=== PATIENT | female | born 1985 | race Caucasian/White ===

== ENCOUNTER 2025-06-05 13:24 | Outpatient (CLI) | payer BC, SELFPAY ==
--- NOTE | ~2025-06-05 | MMUS_ITS ---
EXAMINATION: US breast BI complete, MM diagnostic jayda BI w yolette HISTORY: Left breast lump TECHNIQUE: Images of both breasts ]] were performed using full field digital mammography. 3-D tomosynthesis were also obtained and synthetic 2-D images were generated. CAD analysis was submitted and interpreted. High resolution [bilateral breast ultrasound was performed.] ] COMPARISON: None available BREAST PARENCHYMAL COMPOSITION: The breasts are extremely dense which lowers the sensitivity of mammography. FINDINGS: MAMMOGRAPHIC FINDINGS: No suspicious calcifications or architectural distortion. Mammographic masses in all 4 quadrants of both breasts ULTRASOUND: Several benign cysts scattered throughout both breasts. There is a 8 x 8 x 6 mm wider than tall hypoechoic cyst versus solid mass in the right breast the 12:00 position 4 cm from the nipple. The finding is wider than tall. No internal color Doppler flow. No posterior acoustic shadowing. The finding is probably benign. There is an 8 x 4 x 9 mm hypoechoic cyst versus solid mass in the right breast the 2:00 position, 5 cm from nipple. The finding is wider than tall. No internal color Doppler flow. No posterior acoustic shadowing. The findings probably benign. There is a 2.5 x 0.6 cm hypoechoic masslike structure in the right breast 7:00 position. The finding is wider than tall. Margins are circumscribed. No posterior acoustic shadowing. There is a 1.9 x 0.8 cm hypoechoic cyst versus solid mass in the left breast at 3:00 position in the periareolar region. The finding is wider than tall. No posterior acoustic shadowing. There is a 0.9 x 0.6 cm hypoechoic cyst versus solid mass in the left breast at 2:00 position 7 cm from the nipple. The finding is well-circumscribed. Findings water than tall. No posterior acoustic shadowing. No internal color flow. IMPRESSION/RECOMMENDATION: 1. Probably benign findings in both breasts. A bilateral diagnostic mammogram and a bilateral diagnostic breast ultrasound in 6 months is recommended. BI-RADS 3-Probably benign-Short interval follow-up suggested. Reviewed, dictated and finalized at location Q. IMPRESSION/RECOMMENDATION: 1. Probably benign findings in both breasts. A bilateral diagnostic mammogram a nd a bilateral diagnostic breast ultrasound in 6 months is recommended. BI-RADS 3-Probably benign-Short interval follow-up suggested. IMPRESSION/RECOMMENDATION: 1. Probably benign findings in both breasts. A bilateral diagnostic mammogram a nd a bilateral diagnostic breast ultrasound in 6 months is recommended. BI-RADS 3-Probably benign-Short interval follow-up suggested.
--- OUTSIDE RECORDS SUMMARY | 2025-06-05 15:17 | XMS_ITS | Clinical Summary ---
Author Organization [facility] Address [address] [place] [address] Phone Care Team Providers Care Assistant Technician Name Role Phone Maximino Dominguez MD Primary Care Provider [phone] Allergies No known active allergies Medications mv-min/folic/vit K/lycop/coQ10 (DAILY MULTIVITAMIN ORAL) Take by mouth. Active Active Problems No known active problems Resolved Problems Problem Noted Date Diagnosed Date Resolved Date 02/11/2014 08/12/2021 Amenorrhea 01/14/2014 08/12/2021 Family History Medical History Relation Name Comments Diabetes Father Healthy Father Healthy Mother Healthy Paternal Grandfather Healthy Paternal Grandmother Relation Name Status Comments Father Alive Maternal Grandfather (Age 60s) s uicide Maternal Grandmother (Age 40s) l jesús [place] Mother Alive Paternal Grandfather Alive Paternal Grandmother Alive Social History Tobacco Use Types Packs/Day Years Used Date Smoking Tobacco: Never Smokeless Tobacco: Never Alcohol Use Standard Drinks/Week Comments No 0 (1 standard drink = 0.6 oz pur e alcohol) Comments No Sex and Gender Information Value Date Recorded Sex Assigned at Not on file Legal Sex Female 9:47 AM CDT Gender Identity Not on file Sexual Orientation Not on file Occupation Industry Job Start Date Job End Date Homemaker Not on file Not on file Not on file Last Filed Vital Signs Vital Sign Reading Time Taken Comments Blood Pressure 136/77 08/12/2021 7:34 AM FACILITY MAINTENANCE MANAGER Pulse 72 08/25/2014 1:08 PM FACILITY MAINTENANCE MANAGER Temperature 37.1 C (98.7 F) 08/25/2014 1:08 PM FACILITY MAINTENANCE MANAGER Respiratory Rate 18 08/25/2014 1:08 PM FACILITY MAINTENANCE MANAGER Oxygen Saturation 98% 08/25/2014 1:08 PM FACILITY MAINTENANCE MANAGER Inhaled Oxygen Concentration - - Weight 89.4 kg (197 lb) 08/12/2021 7:34 AM FACILITY MAINTENANCE MANAGER Height 175.3 cm (5' 9) 08/12/2021 7:34 AM FACILITY MAINTENANCE MANAGER Body Mass Index 29.09 08/12/2021 7:34 AM FACILITY MAINTENANCE MANAGER Plan of Treatment Health Maintenance Due Date Last Done Comments DTAP/TDAP/TD VACCINES (1 - Tdap) 2003 HEPATITIS B VACCINES (1 of 3 - 19+ 3-dose series) 07/21 HPV/Cotest (21-29) 2005 HPV VACCINES (1 - 3-dose SCDM series) 2011 HPV/Cotest (30-65) 2014 CERVICAL CANCER SCREENING 01/14/2017 PAP SMEAR 01/14/2017 01/14/2014 BREAST CANCER SCREENING 2024 INFLUENZA VACCINE (#1) 2025 Procedures Procedure Name Priority Date/Time Associated Diagnosis Comments CERV/VAG CYTOPATH, SUREPATH W/RFLX HPV Routine 01/14/2014 3:59 PM CDT Amenorrhea Screening for malignant neoplasm of cervix from Last 3 Months or Most Recently Relevant to Health Maintenance Results * CERV/VAG CYTOPATH, SUREPATH W/RFLX HPV (01/14/2014 3:59 PM CDT) CLINICAL INFORMATION HEALTHY [facility] [employer] [facility] LAST MENSTRUAL PERIOD 10/01/13 [facility] [employer] [facility] PAP INTERP Negative for intraepithelial lesion or malignancy. [facility] [employer] [facility] Comment: Performed by [facility], [address] [place] [id number] ADEQUACY: Satisfactory for evaluation. Endocervical/trans formation zone component present. [facility] [employer] [facility] SOURCE Endocervix [facility] [employer] [facility] PREV PAP: Information not provided [facility] CYTOTECHNOLOGI ST: LMT, CT(ASCP) [facility] [employer] [facility] PREV BX: TISSUE SUBMITTED WITH PAP [facility] Endocervical 01/14/2014 3:59 PM CDT 01/14/2014 11:22 PM CDT Comment:ENDOCERVICAL Narrative [facility] - 01/17/2014 12:48 PM CDT ecc Camilla Portillo CNM PATHOLOGY/CYTOLOGY ORDERA BLES Edited Result - Final [facility] CLIA# [id number] [address], [place] [id number] from Last 3 Months or Most Recently Relevant to Health Maintenance Insurance [facility] [employer] ACCESS CHOICE Advance Directives For more information, please contact: [phone] * Full Code (Latest Code Status on File) Date Activated Date Inactivated Comments 07/06/2014 6:22 PM 07/06/2014 10:03 PM * Full Code Date Activated Date Inactivated Comments 07/06/2014 4:00 PM 07/06/2014 6:22 PM Care Teams Assistant Technician Relationship Specialty Start Date End Date Maximino Dominguez MD [address] [place] [address] PCP - General Family Practice 01/14/14
== END 2025-06-05 13:25 | disposition home or self-care (01) ==
PROVIDERS: Visit Provider Obstetrics & Gynecology
DX: N63.20 Unspecified lump in the left breast, unspecified quadrant (principal); R92.8 Other abnormal and inconclusive findings on diagnostic imaging of breast
CPT/HCPCS: 76641; 77062; 77066; G0279